=== PATIENT | female | born 1945 | race Caucasian/White ===

== ENCOUNTER → 2021-02-07 | Outpatient (REF) | payer MEDICARE, BC ==
[2021-02-16 13:15] LABS: CALPROTECTIN STOOL 46 ug/g (0-120)
== END ==
LOC: M LAB REF 11:34
PROVIDERS: ATTEND Internal Medicine Gastroenterology
DX: R19.7 Diarrhea, unspecified (principal)

== ENCOUNTER → 2021-03-03 | Outpatient (REF) | payer MEDICARE, BC | LOC: M LAB REF 12:03 | PROVIDERS: ATTEND Internal Medicine Gastroenterology | DX: R19.7 Diarrhea, unspecified (principal) ==

== ENCOUNTER → 2021-05-02 | Outpatient (CLI) | payer MEDICARE, BC ==
[~2021-05-02] MED LIST: ATOR40TA75 PO; BUSP10TA PO; HYDR-3490 PO; MAGN1CAP PO; METO1TAB7 PO; OMEP-218 PO; POTA20TA6 PO; PROP20TA72 PO; RAMI1CAP26 PO; ROPI0.253 PO
== END ==
LOC: M LABSMTC 10:18
PROVIDERS: ATTEND Anesthesiology
DX: Z01.812 Encounter for preprocedural laboratory examination (principal); Z20.822 Contact with and (suspected) exposure to COVID-19

== ENCOUNTER 2021-05-06 09:35 | Day surgery (SDC) | payer MEDICARE, BC ==
[~2021-05-06] VITALS: Ht 157.5 cm; Wt 93.0 kg
[~2021-05-06 09:35] MED LIST changes: +LIDOCAINE 2% 100MG/5ML SDV (FOR ANES.) As Ordered ONE; +NS 1,000 ML IV ONE; +propofoL 200 MG/20 ML VIAL As Ordered ONE
[2021-05-06] MEDS ORDERED: propofoL 200 MG/20 ML VIAL As Ordered ONE (12:24)
--- NOTE | 2021-05-06 12:58 | ROOR ---
Patient Name: Liliana Martin Procedure Date: 05/06/2021 11:59 AM Date of : 1945 Age: 75 Room: [facility] Gender: Female Note Status: Finalized Procedure: Colonoscopy Indications: Diarrhea Providers: Alexsander Burt MD Referring MD: TJEAS HOWELL MD Requesting Provider: Medicines: Monitored Anesthesia Care Complications: No immediate complications. Procedure: Pre-Anesthesia Assessment: - The heart rate, respiratory rate, oxygen saturations, blood pressure, adequacy of pulmonary ventilation, and response to care were monitored throughout the procedure. The Colonoscope was introduced through the anus and advanced to the terminal ileum, with identification of the appendiceal orifice and IC valve. The colonoscopy was performed with difficulty due to significant looping and a tortuous colon. Successful completion of the procedure was aided by changing the patient to a supine position. The patient tolerated the procedure well. The quality of the bowel preparation was good. Findings: The perianal and digital rectal examinations were normal. The recto-sigmoid colon and sigmoid colon were grossly tortuous. Advancing the scope required changing the patient to a supine position. Multiple small and large-mouthed diverticula were found in the recto-sigmoid colon and distal sigmoid colon. There was narrowing of the colon in association with the diverticular opening. A 7 mm polyp was found in the hepatic flexure. The polyp was sessile. The polyp was removed with a cold snare. Resection and retrieval were complete. Internal hemorrhoids were found during retroflexion. The hemorrhoids were medium-sized. The exam was otherwise without abnormality on direct and retroflexion views. Biopsies for histology were taken with a cold forceps for evaluation of microscopic colitis. Impression: - Moderate diverticulosis in the recto-sigmoid colon and in the distal sigmoid colon. There was marked angulation and tortuososity limited to the distal sigmoid. Passage here is difficult and visualisation of this short segment is suboptimal. - One 7 mm polyp at the hepatic flexure, removed with a cold snare. Resected and retrieved. - Internal hemorrhoids. - The examination was otherwise normal on direct and retroflexion views. - Biopsies were taken with a cold forceps for evaluation of microscopic colitis. Recommendation: - Await pathology results. - Telephone endoscopist for pathology results in 2 weeks. - Will consider CT Colography, or BE to hopefully more clearly delineate the area of ther sigmoid/rectosigmoid. - My office will call you in the next few days to set you up for this study/exam. Procedure Code(s): --- Professional --- 51022, Colonoscopy, flexible; with removal of tumor(s), polyp(s), or other lesion(s) by snare technique 11862, 59, Colonoscopy, flexible; with biopsy, single or multiple Diagnosis Code(s): --- Professional --- Q43.8, Other specified congenital malformations of intestine K57.30, Diverticulosis of large intestine without perforation or abscess without bleeding R19.7, Diarrhea, unspecified K63.5, Polyp of colon K64.8, Other hemorrhoids CPT copyright 2019 [employer]. All rights reserved. The codes documented in this report are preliminary and upon medical staff credentialing coordinator review may be revised to meet current compliance requirements. Alexsander Burt MD Alexsander Burt MD 05/06/2021 12:57:51 PM Electronically signed by Alexsander Burt MD Number of Addenda: 0 Note Initiated On: 05/06/2021 11:59 AM Estimated Blood Loss: Estimated blood loss: none.
[2021-05-06 13:25] VITALS: BP 134/72
== END 2021-05-06 13:33 | disposition home or self-care (01) ==
LOC: M OPP 09:35
PROVIDERS: ATTEND Internal Medicine Gastroenterology
DX: Q43.8 Other specified congenital malformations of intestine (principal); D12.3 Benign neoplasm of transverse colon; K64.8 Other hemorrhoids; R19.7 Diarrhea, unspecified; M79.7 Fibromyalgia; Z79.899 Other long term (current) drug therapy; Z88.5 Allergy status to narcotic agent; Z88.8 Allergy status to other drugs, medicaments and biological substances; Z87.891 Personal history of nicotine dependence

== ENCOUNTER → 2021-12-14 | Outpatient (REF) | payer MEDICARE, BC ==
[~2021-12-14] MED LIST changes: -LIDOCAINE 2% 100MG/5ML SDV (FOR ANES.) As Ordered ONE; -NS 1,000 ML IV ONE; +OMEP-173 PO; -OMEP-218 PO; +POTA-151 PO; -POTA20TA6 PO; -propofoL 200 MG/20 ML VIAL As Ordered ONE
== END ==
LOC: M LAB REF 11:33
PROVIDERS: ATTEND Internal Medicine Gastroenterology
DX: K52.832 Lymphocytic colitis (principal)

== ENCOUNTER → 2021-12-29 | Outpatient (CLI) | payer MEDICARE, BC ==
[~2021-12-29] MED LIST changes: +E-Z-GAS II EFFERVESCENT PACKET (SODIUM BICARB./CITRIC ACID/SIMETHICONE) As Ordered ONE; +E-Z-HD 98% w/w 340GM SUSP BTL As Ordered ONE; +E-Z-PAQUE 96% w/w SUSP 176GM BTL As Ordered ONE; +LIQUID POLIBAR PLUS 105% w/v 750ML BTL As Ordered ONE
== END ==
LOC: M RAD 08:48
PROVIDERS: ATTEND Internal Medicine Gastroenterology
DX: K57.30 Diverticulosis of large intestine without perforation or abscess without bleeding (principal); K52.832 Lymphocytic colitis

== ENCOUNTER 2024-01-28 13:24 | Day surgery (SDC) | payer MEDICARE ==
[~2024-01-28] VITALS: Ht 157.5 cm; Wt 85.3 kg
[~2024-01-28 13:24] MED LIST changes: -E-Z-GAS II EFFERVESCENT PACKET (SODIUM BICARB./CITRIC ACID/SIMETHICONE) As Ordered ONE; -E-Z-HD 98% w/w 340GM SUSP BTL As Ordered ONE; -E-Z-PAQUE 96% w/w SUSP 176GM BTL As Ordered ONE; -LIQUID POLIBAR PLUS 105% w/v 750ML BTL As Ordered ONE; +LR 1,000 ML IV SCH; +MAGN500T12 PO; +MYSO50TA5 PO; +PROP120C PO; +RAMI10CA64 PO; -RAMI1CAP26 PO; -ROPI0.253 PO; +ROPI1TAB73 PO; +ROPI5TAB19 PO; +VIBE1TAB2 PO
[2024-01-28] MEDS: FLURBIPROFEN 0.03% OPHTH SOLN 2.5 ML OD SCH (13:52)
[2024-01-28] MEDS: ATROPINE SULFATE 1% OPHTH SOLN 2ML BTL OD SCH (13:52)
[2024-01-28] MEDS: PHENYLEPHRINE 2.5% OPHTH SOL 2ML OD SCH (13:52)
[2024-01-28] MEDS: TETRACAINE 0.5% OPHTH SOLN 4ML OD SCH (13:52)
[2024-01-28] MEDS ORDERED: MIDAZOLAM INJ 2MG/2ML VIAL As Ordered ONE (15:01)
[2024-01-28] MEDS: CEFUROXIME 1MG/0.1ML INTRACAMERAL INJ As Ordered ONE (15:05)
[2024-01-28] MEDS: LIDOCAINE 1% SDV 5ML VIAL As Ordered ONE (15:05)
[2024-01-28 15:30] VITALS: BP 170/75; TEMP 97.3; O2SAT 96
== END 2024-01-28 16:00 | disposition home or self-care (01) ==
LOC: M SDC 13:24
PROVIDERS: ATTEND Ophthalmology
DX: H25.11 Age-related nuclear cataract, right eye (principal); I10 Essential (primary) hypertension; E78.00 Pure hypercholesterolemia, unspecified; K58.9 Irritable bowel syndrome, unspecified; G25.0 Essential tremor; Z79.899 Other long term (current) drug therapy; Z88.8 Allergy status to other drugs, medicaments and biological substances; G25.81 Restless legs syndrome; Z88.1 Allergy status to other antibiotic agents; Z88.5 Allergy status to narcotic agent; Z87.891 Personal history of nicotine dependence; Z90.710 Acquired absence of both cervix and uterus
CPT/HCPCS: 66984; J0697; J2250; V2632

== ENCOUNTER 2024-03-24 12:10 | Day surgery (SDC) | payer MEDICARE ==
[~2024-03-24] VITALS: Ht 157.5 cm; Wt 88.2 kg
[~2024-03-24 12:10] MED LIST changes: +CARV6.25 PO; +DULO20CA27 PO; +ENTR1TAB PO; +FURO20TA2 PO; +LOXA10CA PO; +SPIR-10 PO; +XARE10TA PO
[2024-03-24] MEDS: TETRACAINE 0.5% OPHTH SOLN 4ML OS SCH (13:36)
[2024-03-24] MEDS: ATROPINE SULFATE 1% OPHTH SOLN 2ML BTL OS SCH (13:37)
[2024-03-24] MEDS: PHENYLEPHRINE 2.5% OPHTH SOL 2ML OS SCH (13:37)
[2024-03-24] MEDS: FLURBIPROFEN 0.03% OPHTH SOLN 2.5 ML OS SCH (13:37)
[2024-03-24] MEDS ORDERED: MIDAZOLAM INJ 2MG/2ML VIAL As Ordered ONE (14:33)
[2024-03-24] MEDS ORDERED: fentaNYL 100 MCG/2 ML INJECTION As Ordered ONE (14:34)
[2024-03-24] MEDS: LIDOCAINE 1% SDV 5ML VIAL As Ordered ONE (14:46)
[2024-03-24] MEDS: CEFUROXIME 1MG/0.1ML INTRACAMERAL INJ As Ordered ONE (14:47)
[2024-03-24 15:03] VITALS: BP 136/94; TEMP 97.2; O2SAT 96
== END 2024-03-24 15:28 | disposition home or self-care (01) ==
LOC: M SDC 12:10
PROVIDERS: ATTEND Ophthalmology
DX: H25.12 Age-related nuclear cataract, left eye (principal); I50.9 Heart failure, unspecified; I11.0 Hypertensive heart disease with heart failure; E78.00 Pure hypercholesterolemia, unspecified; K58.0 Irritable bowel syndrome with diarrhea; R12 Heartburn; M19.09 Primary osteoarthritis, other specified site; M48.00 Spinal stenosis, site unspecified; F41.9 Anxiety disorder, unspecified; F32.A Depression, unspecified; M79.7 Fibromyalgia; G25.0 Essential tremor; G25.81 Restless legs syndrome; F43.10 Post-traumatic stress disorder, unspecified; Z88.8 Allergy status to other drugs, medicaments and biological substances; Z88.1 Allergy status to other antibiotic agents; Z88.6 Allergy status to analgesic agent; Z88.7 Allergy status to serum and vaccine; Z79.899 Other long term (current) drug therapy; Z79.01 Long term (current) use of anticoagulants
CPT/HCPCS: 66984; J0697; J2250; J3010; V2632